=== PATIENT | female | born 2000 | race Caucasian/White ===

== ENCOUNTER 2018-08-28 16:28 | Emergency (ER) | payer OTHER ==
[~2018-08-28] VITALS: Ht 162.6 cm; Wt 59.0 kg
[2018-08-28 16:33] VITALS: BP 105/71
[2018-08-28] MEDS ORDERED: NACL 0.9% 1,000 ML IV ONE (16:37)
[2018-08-28] MEDS ORDERED: ONDANSETRON 4 MG/2 ML VIAL IVP ONE (16:40)
--- NOTE | 2018-08-28 16:55 | NUR ---
# 16 FR Bell catheter utilizing sterile technique. Immediate return of 50 ml clear, yellow urine noted. Bedside drainage bag placed below level of bladder. Pt tolerated procedure well.
[2018-08-28] MEDS: NACL 0.9% 2,000 ML IV SCH ×2 (16:57→17:11)
--- NOTE | 2018-08-28 17:05 | NUR ---
MEDICATED PT WITH ZOFRAN ORDERED. PT OPENS HER EYES SLIGHTLY TO HER NAME, NO VERBAL RESPONSE BACK FROM PT, SLEEPING AT THIS TIME. PHAM CATHETER IN PLACE, IVF NS INFUSION WELL. UNABLE TO OBTAIN HX FROM PT, INTOXICATED WITH ALCOHOL. URINE COLLECETED FROM PHAM CATHETER AND SENT TO LAB. EVEN AND NON LABORED RESPIRATION, NO SI/SX OF DISTRESS NOTED. PT CONNECTED TO THE MONITOR. WILL CONTINUE TO MONITOR PT.
[2018-08-28 17:22] LABS: BASOPHILS % (AUTO) 0.3 % (0.0-2.0); EOSINOPHILS % (AUTO) 0.1 % (0.0-4.0); HEMATOCRIT 40.4 % (36-48); HEMOGLOBIN 13.7 g/dL (12.0-16.0); LYMPHOCYTES # (AUTO) 2.4 K/uL (2.5-16.5); LYMPHOCYTES % (AUTO) 28.5 % (20.5-51.1); MEAN CORPUSCULAR HEMOGLOBIN 31 pg (27-31); MEAN CORPUSCULAR HGB CONC 34 g/dL (33-37); MEAN CORPUSCULAR VOLUME 92.2 fL (80-94); MONOCYTES # (AUTO) 0.6 K/uL (0.8-1.0); MONOCYTES % (AUTO) 6.7 % (1.7-9.3); NEUTROPHILS # (AUTO) 5.5 K/uL (1.8-7.7); NEUTROPHILS % (AUTO) 64.4 % (42.2-75.2); PLATELET COUNT (AUTO) 242 K/uL (140-450); RED BLOOD CELL COUNT(AUTO) 4.38 MIL/uL (4.20-5.40); WHITE BLOOD COUNT (AUTO) 8.5 K/uL (4.5-11.0)
[2018-08-28 17:23] LABS: APPEARANCE,URINE SL CLOUDY (CLEAR); BILIRUBIN,URINE NEGATIVE (NEGATIVE); BLOOD, URINE 1+ (NEGATIVE); COLOR,URINE YELLOW (YELLOW); LEUKOCYTE ESTERASE ,URINE NEGATIVE (NEGATIVE); NITRITE, URINE NEGATIVE (NEGATIVE); PH,URINE 5.5 (5.0-9.0); UGLUCOSE NEGATIVE (NEGATIVE)
--- NOTE | 2018-08-28 17:30 | NUR ---
PT BIB EMS FROM [facility] TODAY WITH C/O ALCOHOL INTOXICATION. PT RESPONDS TO VOICE, SOMNOLENECE, EVEN AND NON-LABORED BREATTHING AT THIS TIME. NO INJURY NOTED, PUPILS BOTH REACTVE TO LIGHT, DIALTES 3 mm. INSERTED PHAM CATHETER PER ORDER, OBTAINED URINE SAMLPE. RAISED BED RAILS X2, BED AT LOWEST POSITION. IVF INFUSINF WELL. HX --UNKNOWN MEDS--UNKNOWN
[2018-08-28 17:33] LABS: RBC,URINE 11-20 (MOD) /HPF (0-5); WBC,URINE 0-5 /HPF (0-5)
[2018-08-28 17:34] LABS: BARBITURATE, URINE NEG. ng/ml (NEG <=200); BENZODIAZEPINE, URINE NEG. ng/mL (NEG <=200); CANNABINOID, URINE NEG. ng/mL (NEG <=50); COCAINE, URINE NEG. ng/mL (NEG <=300); OPIATE, URINE NEG. ng/mL (NEG <=2000); PHENCYCLIDINE SCREEN,URINE NEG. ng/mL (NEG <=25)
[2018-08-28 17:45] LABS: ANION GAP 14.3 (8-16); CARBON DIOXIDE 25.7 mmol/L (21-32); CREATININE 0.7 mg/dL (0.6-1.3)
[2018-08-28 17:50] LABS: MAGNESIUM 2.3 mg/dL (1.8-2.4); TOTAL BILIRUBIN 0.4 mg/dL (0.0-1.0)
--- NOTE | 2018-08-28 17:57 | NUR ---
PT MORE AWAKE AND ALERT, ABLE TO TALK AT THIS TIME. WILL CONTINUE TO MONITOR PT.
--- NOTE | 2018-08-28 17:59 | NUR ---
Dr. Valdez is evaluating the patient at bedside.
--- NOTE | 2018-08-28 18:10 | NUR ---
PT UP AND AWAKE, TALKING CLEARLY. AAOX4 AT THIS TIME. WALKED TO RESTROOM AND DRINK APPLE JUICE. DENIES ANY VOMITING, ABLE TO AMBULATE PROPERLY. INFORMED HER TO TAKE A REST. ER MD AT THE BEDSIDE. GAVE VERBAL ORDER TO DC PHAM CATHETER. REMOVED PHAM CATHETER. PT RESTING WELL IN HER BED AT THIS TIME.
[2018-08-28 18:50] VITALS: BP 115/55
--- NOTE | 2018-08-28 18:50 | NUR ---
Patient discharged with v/s stable. Written and verbal after care instructions given and explained. Patient alert, oriented and verbalized understanding of instructions. Ambulatory with steady gait. All questions addressed prior to discharge. ID band removed. Patient advised to follow up with PMD. Rx of PROTONIX given. Patient educated on indication of medication including possible reaction and side effects. Opportunity to ask questions provided and answered.
== END 2018-08-28 18:50 | disposition home or self-care (01) ==
LOC: MED 16:28
DX: F10.129 Alcohol abuse with intoxication, unspecified (principal); R11.10 Vomiting, unspecified; Y90.7 Blood alcohol level of 200-239 mg/100 ml
CPT/HCPCS: 36415; 80053; 80305; 81001; 81025; 82150; 82948; 83605; 83690; 83735; 85025; 87086; 96361; 96374; 99283; G0482; J2405